=== PATIENT | female | born 1970 | race Caucasian/White ===

== ENCOUNTER 2019-02-18 00:56 | Observation (INO) ==
[2019-02-18] MEDS ORDERED: Isovue-370 500 ML BOTTLE IVP ONE ×2 (01:06→01:07)
[2019-02-18 01:13] LABS: Hemoglobin 6.7 g/dL (11.5-15.4); Mean Corpuscular HGB Conc 29.1 g/dL (31.6-35.5); Mean Corpuscular Hemoglobin 22.3 pg (28.0-33.3); Mean Corpuscular Volume 76.4 fL (83.0-100.0); Mean Platelet Volume 9.8 fL (9.4-12.4); Platelet Count 616 K/mcL (140-400); Red Blood Count 3.01 M/mcL (3.82-4.97); Red Cell Distribution Width 18.1 % (11.5-14.5); White Blood Count 13.3 K/mcL (4.3-11.1)
[2019-02-18 02:08] LABS: INR 1.1; Prothrombin Time 12.1 Seconds (9.4-12.1)
[2019-02-18 02:11] LABS: Activated Partial Thrombo Time 26.5 Seconds (26.0-36.0)
[2019-02-18 02:42] LABS: BUN/Creatinine Ratio 19 (6-26); Blood Urea Nitrogen 12 mg/dL (6-20); Calcium 8.8 mg/dL (8.6-10.3); Carbon Dioxide 23 mEq/L (23-29); Chloride 104 mEq/L (98-107); Glucose 127 mg/dL (70-105); Osmolality,Calculated 287 (280-300); Potassium 3.2 mEq/L (3.5-5.1); Sodium 138 mEq/L (136-145); eGFR For African Americans > 60 (> 60); eGFR For Non-African Americans > 60 (> 60)
[2019-02-18 02:46] LABS: Troponin I < 0.03 ng/mL (< 0.04)
--- NOTE | 2019-02-18 02:51 | Emergency Department Note ---
Disposition Clinical Impression: Acute on chronic anemia, TIA (transient ischemic attack) Disposition: Admitted As Inpatient Condition: Good Time of Disposition: 02:48 Neuro HPI - General Chief Complaint: ED Neuro Symptoms/Deficit Stated Complaint: "Anemic"/Neuro Sx Time Seen by Provider: 02/18/19 01:05 Source: patient Limitations: no limitations Nursing Notes Reviewed: Yes Vital Signs Reviewed: Yes - History of Present Illness HPI Narrative: 48-year-old female patient with a significant history of anemia requiring transfusion and iron infusions. Presents with left eyelid heaviness and weakness and tingling in her left side of her face and generalized weakness. She states that when her blood count is low she feels this way. She was at work and was becoming more weak and was advised to come to the emergency room. She was planning to call the cancer center tomorrow for an appointment to be evaluat ed and possibly transfused. She states her hemoglobin has been around 5 g in the past. Patient denies any facial droop, dysphagia, dysarthria, or slurring her words. She states she just feels kind of weak now with nausea. Onset of Symptoms Date: 02/17/19 Onset of Symptoms Time: 22:15 Symptom Onset Unknown: Yes Timing confirmed by: other (Patient and coworker) Location: left face, other (A she was not slurring her words, did not have any numbness or tingling in her arms or extremities. No dysarthria denies dysphagia they said she did look in the [place] her left eyelid looked a little droop and she was having trouble holding it open but otherwise she felt weak basically all over and felt that her blood count was low) Severity: mild, now resolved Quality: weakness Symptoms Improving: Yes Improves with: time Context: gradual onset On Anticoagulants: No Associated symptoms: Denies: confusion, chest pain, loss of appetite - Related Data Home Medications: Home Medications Medication Instructions Recorded Confirmed Ascorbic Acid [Vitamin C] 1,000 mg PO DAILY 02/18/19 02/18/19 Cyanocobalamin (Vitamin B-12) 1,000 mcg PO DAILY 02/18/19 02/18/19 [Vitamin B12] Ferrous Sulfate [Iron] 325 mg PO DAILY 02/18/19 02/18/19 Allergies/Adverse Reactions: Allergies Allergy/AdvReac Type Severity Reaction Status Date / Time No Known Allergies Allergy Verified 02/18/19 01:02 All systems ED: reviewed and negative except as stated. Constitutional: Reports: weakness. Denies: fever, chills, weight change Eyes: Denies: eye pain, eye discharge, vision change ENT ED: Denies: ear pain, throat pain, dental pain, hearing loss, epistaxis, congestion, dysphagia Cardiovascular: Denies: chest pain, palpitations, dyspnea on exertion, edema, syncope Respiratory: Denies: cough, dyspnea, wheezes, hemoptysis, stridor Gastrointestinal: Reports: nausea. Denies: abdominal pain, vomiting, diarrhea, constipation, hematemesis, melena, hematochezia Genitourinary: Denies: dysuria, frequency, hematuria, discharge Musculoskeletal: Denies: back pain, neck pain, arthralgia, myalgia Integumentary: Denies: rash, abrasion, lesions Neurological: Reports: weakness, other (Left eyelid weakness/heaviness. Left facial tingling). Denies: headache, numbness, paresthesias, confusion, abnormal gait, vertigo Psychiatric: Denies: anxiety, depression, suicidal thoughts, homicidal thoughts, auditory hallucinations, visual hallucinations Endocrine: Denies: fatigue Past Medical History - Past Medical History Attestation: Yes The following information was validated with the patient. Source: patient, old records reviewed, nursing notes reviewed Medical history: Reports: hypertension, other Surgical history: Reports: splenectomy Psychiatric history: Reports: no psych history - Social History Smoking Status: Current every day smoker Smokeless Tobacco Status: No Alcohol use: Reports: occasionally Drug use: Reports: none Physical Exam - General Limitations: no limitations General appearance: alert, in no apparent distress - Head Head exam: atraumatic, normocephalic, normal inspection - Eye Eye exam: Present: normal appearance, PERRL, EOMI. Absent: conjunctival injection, miosis, mydriasis - ENT ENT exam: normal exam, normal oropharynx, mucous membranes moist - Neck Neck exam: Present: normal inspection, full ROM, trachea midline - Chest Chest inspection: Present: normal inspection, symmetric chest wall rise Course Course Narrative: Patient was placed in examination room. H&P obtained. It was reported patient had a left sided facial droop and arm weakness but this was not true. She told me as well as the nursing staff that she had left eyelid heaviness and left facial tingling. She does have a significant history of being anemic. Her hemoglobin was 6.7. She was typed and crossmatched for 2 units. Patient was transfused. Patient was a stroke alert. Her symptoms had resolved so suspected transient ischemic attack or beats from her anemia as she was at work p hysically active and that could be demand ischemia causing some of the symptoms as well. The CT of her head, CTA of her head and neck were essentially unremarkable for acute pathology. Dr. Jon from [facility] neurological stroke team did evaluate the patient remotely and felt TPA was not necessary and advised to continue workup for TIA. I spoke with Dr. Morse who will admit the patient and I advised him about physical finding, laboratory data, radiological studies and results and neuro stroke team's recommendations. - Consultations Consultation #1: Dr Jon Neuro-Stroke team [facility] Time: 02:15 Consultation #2: Dr. Morse will admit. I did explain to him that the patient told me that only her left eye was little droopy which she noticed in the mirror she cannot felt weak and felt that she was low on blood Her hemoglobin was 6.7. She was transfused. I did obtain a CT of her head, CTA head and neck with her DID not show any acute pathology. Patient was evaluated by neuro stroke team from [facility]. They did not recommend TPA advised that he get further evaluate her for stroke with a CTA which had been performed advised to treat her anemia and have neurology see her Time: 03:51 Vital Signs Temperature 98.0 F 02/18/19 01:03 Pulse Rate 109 02/18/19 01:03 Respiratory Rate 20 02/18/19 01:03 Blood Pressure 181/95 02/18/19 01:03 O2 Sat by Pulse Oximetry 99 02/18/19 01:03 Temperature 98.9 F 02/18/19 07:11 Pulse Rate 78 02/18/19 07:11 Respiratory Rate 16 02/18/19 07:11 Blood Pressure 136/79 02/18/19 07:11 O2 Sat by Pulse Oximetry 99 02/18/19 07:11 Oxygen Delivery Oxygen Delivery Room Air Neuro Symptoms/Deficit - MDM Narrative Medical decision making narrative: Patient is not a TPA candidate as her symptoms were minimal and completely resolved and secondary to her significant anemia would also be contraindicated But, her symptoms versus a resolved upon my examination. She no longer had any facial/eye droop or facial tingling on the left Patient had a CT head, CTA head and neck which were essentially unremarkable showed no acute pathology. - Medical Records Medical records reviewed: Yes I reviewed the patient's medical records. - Lab Data Lab results reviewed: Yes I reviewed the patient's lab results. Result diagrams: 02/18/19 01:04 02/18/19 02:20 Lab Results 02/18/19 02/18/19 02/18/19 Range/Units 01:04 01:39 01:39 WBC 13.3 H (4.3-11.1) K/mcL RBC 3.01 L (3.82-4.97) M/mcL Hgb 6.7 L (11.5-15.4) g/dL Hct 23.0 L (35.3-44.9) % MCV 76.4 L (83.0-100.0) fL MCH 22.3 L (28.0-33.3) pg MCHC 29.1 L (31.6-35.5) g/dL RDW 18.1 H (11.5-14.5) % Plt Count 616 H (140-400) K/mcL MPV 9.8 (9.4-12.4) fL PT 12.1 (9.4-12.1) Seconds INR 1.1 APTT 26.5 (26.0-36.0) Seconds Sodium (136-145) mEq/L Potassium (3.5-5.1) mEq/L Chloride (98-107) mEq/L Carbon Dioxide (23-29) mEq/L BUN (6-20) mg/dL Creatinine (0.60-1.20) mg/dL Est GFR ( Amer) (> 60) Est GFR (Non-Af Amer) (> 60) BUN/Creatinine Ratio (6-26) Glucose (70-105) mg/dL Calculated Osmolality (280-300) Calcium (8.6-10.3) mg/dL Troponin I (< 0.04) ng/mL Specimen Rejected Miscellaneous Blood Type Antibody Screen Crossmatch 02/18/19 02/18/19 Range/Units 01:57 02:20 WBC (4.3-11.1) K/mcL RBC (3.82-4.97) M/mcL Hgb (11.5-15.4) g/dL Hct (35.3-44.9) % MCV (83.0-100.0) fL MCH (28.0-33.3) pg MCHC (31.6-35.5) g/dL RDW (11.5-14.5) % Plt Count (140-400) K/mcL MPV (9.4-12.4) fL PT (9.4-12.1) Seconds INR APTT (26.0-36.0) Seconds Sodium 138 (136-145) mEq/L Potassium 3.2 L (3.5-5.1) mEq/L Chloride 104 (98-107) mEq/L Carbon Dioxide 23 (23-29) mEq/L BUN 12 (6-20) mg/dL Creatinine 0.62 (0.60-1.20) mg/dL Est GFR ( Amer) > 60 (> 60) Est GFR (Non-Af Amer) > 60 (> 60) BUN/Creatinine Ratio 19 (6-26) Glucose 127 H (70-105) mg/dL Calculated Osmolality 287 (280-300) Calcium 8.8 (8.6-10.3) mg/dL Troponin I < 0.03 (< 0.04) ng/mL Specimen Rejected Blood Type A POSITIVE Antibody Screen NEGATIVE Crossmatch See Detail - Radiology Data Radiology results reviewed: Yes I reviewed the patient's radiology results. Head CT 02/18/19 01:06 IMPRESSION: No evidence acute infarct. Chronic low attenuation in the left insula. Bilateral maxillary sinus disease with polypoid mucosal thickening. Critical results were called by Dr. Suresh Finney to Dr. Kwan on 02/18/2019 at 01:22 AM. D/ / Suresh Finney / Suresh Finney Interpreting Provider: Suresh Finney Head CTA 02/18/19 01:06 IMPRESSION: Unremarkable CTA of the head and neck. D/ / Jeremias Sessions / Jeremias Child Interpreting Provider: Jeremias Child Neck CTA 02/18/19 01:07 IMPRESSION: Unremarkable CTA of the head and neck. D/ / Jeremias Sessions / Jeremias Sessions Interpreting Provider: Jeremias Sessions - EKG Data EKG attestation: Yes I reviewed and interpreted this EKG. EKG results narrative: EKG shows a sinus tachycardia at 114 bpm normal intervals and normal axis no acute ST elevations or depression just S infarction or ischemia is reviewed and interpreted by me. NIH Stroke Scale - Level of Consciousness LOC: Alert - LOC Questions LOC Questions: Answers both correctly - LOC Commands LOC Commands: Performs both correctly - Best Gaze Best Gaze: Normal - Visual Visual: No visual loss - Facial Palsy Facial Palsy: Normal - Motor Arms Motor Arm-Left: No drift for 10 seconds Motor Arm-Right: No drift for 10 seconds - Motor Legs Motor Leg-Left: No drift for 5 seconds Motor Leg-Right: No drift for 5 seconds - Limb Ataxia Limb Ataxia: Absent of affected limb too weak to perform exam - Sensory Sensory: Normal - Best Language Best Language: No aphasia - Dysarthria Dysarthria: Normal - Extinction and Inattention Extinction and Inattention: Normal - NIHSS Total Score NIHSS Total Score: 0 - Pupil Exam Bilateral Pupil Reaction: Reactive TPA Checklist - LKW: 3-4.5 hrs Add. Warnings/Precautions Patient/family understanding: The patient/family members have been counseled and understood the risk, benefit, and alternatives of treatment. Critical Care Time Critical Care Time: Yes Total Critical Care Time: 30 Attestation: The high probability of a clinically significant, sudden or life threatening deterioration of the patient's condition required my full and direct attention, intervention and personal management.
[2019-02-18] MEDS ORDERED: Ondansetron ODT 4 MG TAB.RAPDIS SL ONE (03:53)
[2019-02-18] MEDS ORDERED: 0.9 % Sodium Chloride 250 ML ONE (06:11)
[2019-02-18] MEDS ORDERED: Acetaminophen 325 MG TABLET PO PRN (07:39)
[2019-02-18] MEDS ORDERED: Naloxone 0.4 MG/ML INJ IVP PRN (07:39)
[2019-02-18] MEDS ORDERED: traMADol 50 MG TABLET PO PRN (07:39)
[2019-02-18] MEDS ORDERED: *HR* Promethazine 25 MG/ML VIAL IVP PRN (07:39)
[2019-02-18] MEDS ORDERED: Ondansetron 4 MG/2 ML VIAL IVP PRN (07:39)
[2019-02-18] MEDS ORDERED: Mag Hydrox/Al Hydrox/Simeth 30 ML UDC PO PRN (07:39)
--- NOTE | 2019-02-18 07:45 | Internal Med History&Physical ---
Date of Encounter: 02/18/19 Time of Encounter: 07:41 Internal Medicine - H&P: HPI Admitted From: Home Plans for Post Hospital Care: Home History of present illness: 48-year-old female patient with a significant history of anemia requiring transfusion and iron infusions. Presents with left eyelid heaviness and weakness and tingling in her left side of her face and generalized weakness. She states that when her blood count is low she feels this way. She was at work and was becoming more weak and was advised to come to the emergency room. She was planning to call the cancer center tomorrow for an appointment to be evaluated and possibly transfused. She states her hemoglobin has been around 5 g in the past. Patient denies any facial droop, dysphagia, dysarthria, or slurring her words. She states she just feels kind of weak now with nausea. CT of head was negative for acute abnormalities. CTA of head has no acute vascular stenosis. [facility] stroke and was consulted and patient was not a candidate for TPA. Patient was admitted for further evaluation and management. She will hemoglobin was 6.7 upon admission, 2 unit PRBC was ordered. Patient CODE STATUS will be full code. Past Med Surg Social Fam HX - Past Medical History Medical history: hypertension, other Additional medical history: anemia Psychiatric history: no psych history - Past Surgical History Surgical History: splenectomy Additional surgical history: partial hysterectomy, right acl, right ankle surgery - Social History Smoking Status: Current every day smoker Smokeless Tobacco Status: No Alcohol use: occasionally Drug use: none - Family History Mother Hx Family Cancer: Yes (lung, cervical) Father Living Status: Hx Family Cardiac Disorders: Yes (triple bypass, double bypass) Internal Medicine - H&P: Meds Ascorbic Acid [Vitamin C] 1,000 mg PO DAILY 02/18/19 [History] Cyanocobalamin (Vitamin B-12) [Vitamin B12] 1,000 mcg PO DAILY 02/18/19 [History] Ferrous Sulfate [Iron] 325 mg PO DAILY 02/18/19 [History] Allergy/AdvReac Type Severity Reaction Status Date / Time No Known Allergies Allergy Verified 02/18/19 01:02 All Systems PM: A 10-system review of systems was performed and is negative for pertinent findings except as documented above in the HPI. Review of systems: REVIEW OF SYSTEMS: CONSTITUTIONAL: No weight loss, fever, chills, weakness or fatigue. HEENT: Eyes: No visual loss, blurred vision, double vision or yellow sclerae. Ears, Nose, Throat: No hearing loss, sneezing, congestion, runny nose or sore throat. SKIN: No rash or itching. CARDIOVASCULAR: No chest pain, chest pressure or chest discomfort. No palpitations or edema. RESPIRATORY: No shortness of breath, cough or sputum. GASTROINTESTINAL: No anorexia, nausea, vomiting or diarrhea. No abdominal pain or blood. GENITOURINARY: No dysuria, urgency, or frequency. NEUROLOGICAL: see HPI. MUSCULOSKELETAL: No muscle, back pain, joint pain or stiffness. HEMATOLOGIC: No anemia, bleeding or bruising. LYMPHATICS: No enlarged nodes. No history of splenectomy. PSYCHIATRIC: No history of depression or anxiety. ENDOCRINOLOGIC: No reports of sweating, cold or heat intolerance. No polyuria or polydipsia. - Constitutional Vitals: Temp Pulse Resp BP Pulse Ox 98.9 F 78 16 136/79 99 02/18/19 07:11 02/18/19 07:11 02/18/19 07:11 02/18/19 07:11 02/18/19 07:11 General appearance: Present: A&O X 3 Exam: PHYSICAL EXAMINATION: GENERAL APPEARANCE: The patient is alert, oriented and in no acute distress. HEENT: Head is normocephalic. The sinuses are nontender. Pupils are equal and reactive. The nares are patent. Oropharynx clear without lesions. NECK: Supple without lymphadenopathy. HEART: Regular rate and rhythm. LUNGS: No crackles or wheezes are heard. ABDOMEN: Soft, nontender, nondistended with good bowel sounds heard. Inguinal area is normal. EXTREMITIES: Without cyanosis, clubbing or edema. NEUROLOGICAL: Mild diplopia on the left eye, pupil size is equal and reactive to light, no facial drooping or skin flushing on the left side. SKIN: Warm and dry without any rash. Internal Med - H&P Results - Labs CBC & Chem 7: 02/18/19 01:04 02/18/19 02:20 Labs: Short CBC 02/18/19 Range/Units 01:04 WBC 13.3 H (4.3-11.1) K/mcL Hgb 6.7 L (11.5-15.4) g/dL Hct 23.0 L (35.3-44.9) % Plt Count 616 H (140-400) K/mcL BMP 02/18/19 02:20 Sodium 138 Potassium 3.2 L Chloride 104 Carbon Dioxide 23 BUN 12 Creatinine 0.62 Glucose 127 H Calcium 8.8 Cardiac Enzymes 02/18/19 Range/Units 02:20 Troponin I < 0.03 (< 0.04) ng/mL - Impressions ITS Impressions Head CT 02/18/19 01:06 IMPRESSION: No evidence acute infarct. Chronic low attenuation in the left insula. Bilateral maxillary sinus disease with polypoid mucosal thickening. Critical results were called by Dr. Suresh Finney to Dr. Kwan on 02/18/2019 at 01:22 AM. D/ / 02/18/2019 07:06:23 Suresh Finney / nidia Interpreting Provider: Suresh Finney Head CTA 02/18/19 01:06 IMPRESSION: Unremarkable CTA of the head and neck. D/ / Jeremias Sessions / Jeremias Sessions Interpreting Provider: Jeremias Sessions Neck CTA 02/18/19 01:07 IMPRESSION: Unremarkable CTA of the head and neck. D/ / Jeremias Sessions / Jeremias Sessions Interpreting Provider: Jeremias Sessions Chest X-Ray 02/18/19 03:49 IMPRESSION: Findings of volume overload. Stable lateral left mid lung pulmonary nodule requiring no imaging follow-up. D/ / Suresh Finney / Suresh Finney Interpreting Provider: Suresh Finney - Assessment and Plan (1) Acute on chronic anemia Current Visit: Yes Status: Acute Assessment and plan: 8-year-old female with snoring history of iron deficiency anemia, unresponsive to oral iron supplementation, frequently requiring IV iron infusion, presented with TIA like symptoms with left facial numbness and left diplopia. CT and CTA of her head w negative. Hemoglobin upon arrival was 6.7, 2 unit PRBC was ordered. She reported partially resolution of symptoms after blood transfusion. Patient does not have any risk factors for CVA or cardiovascular disease, negative CT and a CTA of her head, in the setting of her acute anemia, her presenting symptoms could be attributed to severe anemia. Her symptoms improved after blood transfusion. We will continue to transfuse 2 unit PRBC, continue monitoring neurological symptoms. No indications for further imaging at this point. (2) Iron deficiency anemia Current Visit: No Status: Chronic Assessment and plan: She will follow up with hematology as outpatient for periodic IV iron infusion. She was not responding to oral iron supplementation in the past. Qualifiers: Iron deficiency anemia type: unspecified iron deficiency Qualified Code(s): D50.9 - Iron deficiency anemia, unspecified (3) Monocular diplopia of left eye Current Visit: Yes Status: Acute Assessment and plan: Symptoms improved, this could be caused by severe anemia. Neurological workup was negative so far. (4) DVT prophylaxis Current Visit: Yes Status: Acute Assessment and plan: SCDs. - Time Spent With Patient Total time spent is greater than 50% in coordination of care (as documented) at patient's floor/unit and/or counseling patient: Greater than 35 minutes
[2019-02-18] MEDS: Ascorbic Acid 500 MG TABLET PO SCH (08:58)
[2019-02-18] MEDS: Cyanocobalamin (B-12) 1,000 MCG TABLET PO SCH (08:58)
[2019-02-18 15:44] LABS: Hematocrit 29.1 % (35.3-44.9)
[2019-02-19 07:16] LABS: Basophils # 0.1 K/mcL (0.0-0.2); Basophils % 0.8 %; Eosinophils # 0.7 K/mcL (0.0-0.6); Eosinophils % 4.4 %; Hematocrit 29.4 % (35.3-44.9); Immature Granulocytes % 0.8 % (0-4); Lymphocytes # 1.9 K/mcL (0.6-4.6); Lymphocytes % 11.4 %; Mean Corpuscular HGB Conc 30.6 g/dL (31.6-35.5); Mean Corpuscular Hemoglobin 24.1 pg (28.0-33.3); Mean Corpuscular Volume 78.8 fL (83.0-100.0); Mean Platelet Volume 10.3 fL (9.4-12.4); Monocytes # 1.4 K/mcL (0.0-1.3); Monocytes % 8.2 %; Neutrophils # 12.5 K/mcL (1.6-8.9); Nucleated Red Blood Cells 1.3 /100 WBC (0); Platelet Count 589 K/mcL (140-400); Red Blood Count 3.73 M/mcL (3.82-4.97); Red Cell Distribution Width 17.1 % (11.5-14.5); Segmented Neutrophils % 74.4 %; White Blood Count 16.7 K/mcL (4.3-11.1)
[2019-02-19 07:23] LABS: BUN/Creatinine Ratio 17 (6-26); Blood Urea Nitrogen 10 mg/dL (6-20); Calcium 8.7 mg/dL (8.6-10.3); Carbon Dioxide 25 mEq/L (23-29); Chloride 106 mEq/L (98-107); Glucose 100 mg/dL (70-105); Osmolality,Calculated 279 (280-300); Potassium 3.8 mEq/L (3.5-5.1); Sodium 135 mEq/L (136-145); eGFR For African Americans > 60 (> 60); eGFR For Non-African Americans > 60 (> 60)
[2019-02-19] MEDS: Cyanocobalamin (B-12) 1,000 MCG TABLET PO SCH (08:14)
[2019-02-19] MEDS: Ascorbic Acid 500 MG TABLET PO SCH (08:15)
--- NOTE | 2019-02-19 08:46 | Discharge Summary ---
- NOTES TO OUTPATIENT PROVIDER Notes to Outpatient Provider: f/u with PCP within a week. f/u with Dr. Pal hematology within 2-3 weeks. Date of Encounter: 02/19/19 Time of Encounter: 08:43 - Discharge Diagnosis (1) Acute on chronic anemia Priority: Primary Status: Acute (2) Iron deficiency anemia Priority: Primary Status: Chronic Qualifiers: Iron deficiency anemia type: unspecified iron deficiency Qualified Code(s): D50.9 - Iron deficiency anemia, unspecified (3) Monocular diplopia of left eye Priority: Primary Status: Acute (4) DVT prophylaxis Priority: Primary Status: Acute Hospital course: Ms. Motta is a 48 year old female with a significant history of anemia requiring transfusion and iron infusions. Presents with left eyelid heaviness and weakness and tingling in her left side of her face and generalized weakness. She states that when her blood count is low she feels this way. She was at work and was becoming more weak and was advised to come to the emergency room. She was planning to call the cancer center tomorrow for an appointment to be evaluated and possibly transfused. She states her hemoglobin has been around 5 g in the past. Patient denies any facial droop, dysphagia, dysarthria, or slurring her words. She states she just feels kind of weak now with nausea. CT of head was negative for acute abnormalities. CTA of head has no acute vascular stenosis. [facility] stroke and was consulted and patient was not a candidate for TPA. Patient was admitted for further evaluation and management. She will hemoglobin was 6.7 upon admission, 2 unit PRBC was ordered. Hemoglobin level reached to 9.0 after the blood transfusion. Patient reported resolution of left-sided facial numbness and ptosis. Patient is discharged home today, and she will follow-up with PCP and hematology as scheduled. Discharge discussed with: patient Time spent discussing smoking cessation with patient: more than 10 minutes - Time Spent with Patient Total time spent providing and/or coordinating discharge services: Time spent: Greater than 30 minutes - Discharge Medications Prescriptions: Continued Ferrous Sulfate [Iron] 325 mg PO DAILY Cyanocobalamin (Vitamin B-12) [Vitamin B12] 1,000 mcg PO DAILY Ascorbic Acid [Vitamin C] 1,000 mg PO DAILY Home Medications: Ascorbic Acid [Vitamin C] 1,000 mg PO DAILY 02/18/19 [History] Cyanocobalamin (Vitamin B-12) [Vitamin B12] 1,000 mcg PO DAILY 02/18/19 [History] Ferrous Sulfate [Iron] 325 mg PO DAILY 02/18/19 [History] Allergies/Adverse Reactions: Allergy/AdvReac Type Severity Reaction Status Date / Time No Known Allergies Allergy Verified 02/18/19 01:02 Date of admission: 02/18/19 04:08 Primary care physician: PCP NONE Anticipated date of discharge: 02/19/19 - Constitutional Vitals: Temp Pulse Resp BP Pulse Ox 98.5 F 82 21 154/84 99 02/19/19 07:51 02/19/19 07:51 02/19/19 07:51 02/19/19 07:51 02/19/19 07:51 General appearance: Present: A&O X 3 Exam: PHYSICAL EXAMINATION: GENERAL APPEARANCE: The patient is alert, oriented and in no acute distress. HEENT: Head is normocephalic. The sinuses are nontender. Pupils are equal and reactive. The nares are patent. Oropharynx clear without lesions. NECK: Supple without lymphadenopathy. HEART: Regular rate and rhythm. LUNGS: No crackles or wheezes are heard. ABDOMEN: Soft, nontender, nondistended with good bowel sounds heard. Inguinal area is normal. EXTREMITIES: Without cyanosis, clubbing or edema. NEUROLOGICAL: Mild diplopia on the left eye, pupil size is equal and reactive to light, no facial drooping or skin flushing on the left side. SKIN: Warm and dry without any rash. - Patient Status Disposition: Home, Self-Care Condition: Good Functional capacity at discharge: independent ambulation Overall status at discharge: patient is back to baseline - Discharge Instructions Follow Up With: Felipe Matthews MD [Non-Partnered Physician] - (Please contact your primary care office to schedule an appointment after discharge. Thank you. ) - Diet and Activity Activity: increase activity as tolerated Diet: advance to your usual diet
[2019-02-19 11:18] VITALS: BP 160/97
--- NOTE | 2019-02-22 15:49 | Electrocardiograph Report ---
[address] [place], [place] [address] Test Date: 2019-02-18 Pat Name: Petra Motta Department: [id number] Room: 3B46 Gender: F [employer]: : 1970 Requested By: Fermín Platt Order Number: [id number] Reading MD: Raheem Dotson Measurements Intervals [place] Rate: 114 P: 56 CO: 162 QRS: 33 QRSD: 78 T: 40 QT: 318 QTc: 438 Interpretive Statements Sinus tachycardia Atrial premature complex Abnormal R-wave progression, early transition Electronically Signed On 02-22-2019 15:47:29 EDT by Raheem Dotson
== END 2019-02-19 11:31 | disposition home or self-care (01) ==
LOC: 3BNU 00:56 → EMEROOARM 00:56 → 3BNU 04:35
PROVIDERS: ADMIT Family Medicine; ATTEND Family Medicine

== ENCOUNTER 2019-11-03 07:55 | Inpatient (IN) ==
[~2019-11-03 07:55] MED LIST: Lidocaine -MPF 2% 2 ML VIAL ONE
[2019-11-03] MEDS ORDERED: 0.9 % Sodium Chloride 1,000 ML IVC SCH (08:45)
[2019-11-03] MEDS ORDERED: *HR* Propofol 200 MG/20 ML VIAL IVP ONE ×3 (09:16→09:34)
[2019-11-03] MEDS ORDERED: *HR* EPINEPHrine 1 MG/10 ML SYRINGE ONE (09:24)
[2019-11-03] MEDS ORDERED: *HR* Metoprolol 5 MG/5 ML VIAL IVP ONE (09:30)
[2019-11-03] MEDS ORDERED: Naloxone 0.4 MG/ML INJ IVP PRN (11:41)
[2019-11-03] MEDS ORDERED: Isovue-370 500 ML BOTTLE IVP ONE (11:55)
[2019-11-03 13:12] LABS: Hematocrit 37.8 % (35.3-44.9); Hemoglobin 12.7 g/dL (11.5-15.4); Mean Corpuscular HGB Conc 33.6 g/dL (31.6-35.5); Mean Corpuscular Volume 89.2 fL (83.0-100.0); Mean Platelet Volume 9.8 fL (9.4-12.4); Platelet Count 375 K/mcL (140-400); Red Blood Count 4.24 M/mcL (3.82-4.97); Red Cell Distribution Width 16.2 % (11.5-14.5); White Blood Count 16.3 K/mcL (4.3-11.1)
[2019-11-03 13:40] LABS: BUN/Creatinine Ratio 13 (6-26); Blood Urea Nitrogen 7 mg/dL (6-20); Calcium 8.5 mg/dL (8.6-10.3); Carbon Dioxide 27 mEq/L (23-29); Chloride 105 mEq/L (98-107); Glucose 123 mg/dL (70-105); Osmolality,Calculated 287 (280-300); Potassium 3.3 mEq/L (3.5-5.1); Sodium 139 mEq/L (136-145); eGFR For African Americans > 60 (> 60); eGFR For Non-African Americans > 60 (> 60)
[2019-11-03] MEDS ORDERED: Potassium Chloride 40 MEQ, Lidocaine 1% 2 ML in 0.9 % Sodium Chloride 500 ML IVPB ONE (14:09)
[2019-11-03] MEDS ORDERED: *HR* Labetalol 20 MG/4 ML SYRINGE IVP PRN (14:26)
[2019-11-03] MEDS ORDERED: Isovue-370 500 ML BOTTLE PO ONE (14:47)
[2019-11-03] MEDS: atenoloL 50 MG TABLET PO SCH (15:30)
[2019-11-03] MEDS: Pantoprazole 40 MG VIAL IVP SCH (15:30)
[2019-11-03] MEDS: hydroCHLOROthiazide 25 MG TABLET PO SCH (15:30)
[2019-11-03] MEDS ORDERED: Acetaminophen 325 MG TABLET PO PRN (20:20)
[2019-11-04 05:36] LABS: Basophils # 0.1 K/mcL (0.0-0.2); Basophils % 0.4 %; Eosinophils # 0.2 K/mcL (0.0-0.6); Eosinophils % 1.6 %; Hematocrit 35.1 % (35.3-44.9); Hemoglobin 11.8 g/dL (11.5-15.4); Immature Granulocytes % 0.3 % (0-4); Lymphocytes # 2.2 K/mcL (0.6-4.6); Lymphocytes % 15.7 %; Mean Corpuscular HGB Conc 33.6 g/dL (31.6-35.5); Mean Corpuscular Volume 92.1 fL (83.0-100.0); Mean Platelet Volume 10.7 fL (9.4-12.4); Monocytes # 1.1 K/mcL (0.0-1.3); Monocytes % 8.2 %; Neutrophils # 10.2 K/mcL (1.6-8.9); Platelet Count 359 K/mcL (140-400); Red Blood Count 3.81 M/mcL (3.82-4.97); Segmented Neutrophils % 73.8 %; White Blood Count 13.7 K/mcL (4.3-11.1)
[2019-11-04 05:57] LABS: BUN/Creatinine Ratio 16 (6-26); Blood Urea Nitrogen 9 mg/dL (6-20); Calcium 8.5 mg/dL (8.6-10.3); Carbon Dioxide 25 mEq/L (23-29); Chloride 104 mEq/L (98-107); Glucose 125 mg/dL (70-105); Magnesium 2.1 mg/dL (1.6-2.6); Osmolality,Calculated 280 (280-300); Potassium 3.7 mEq/L (3.5-5.1); Sodium 135 mEq/L (136-145); eGFR For African Americans > 60 (> 60); eGFR For Non-African Americans > 60 (> 60)
[2019-11-04] MEDS: Pantoprazole 40 MG VIAL IVP SCH (07:18)
[2019-11-04] MEDS: atenoloL 50 MG TABLET PO SCH (07:18)
[2019-11-04] MEDS: hydroCHLOROthiazide 25 MG TABLET PO SCH (07:18)
[2019-11-04] MEDS ORDERED: *HR* Labetalol 20 MG/4 ML SYRINGE IVP PRN ×3 (07:57→15:49)
[2019-11-04] MEDS ORDERED: Piperacillin/Tazobactam 3.375 GM in 0.9 % Sodium Chloride Mini Bag 100 ML IVPB SCH (12:00)
[2019-11-04] MEDS ORDERED: Acetaminophen IV 1,000 MG/100 ML INFUS..BTL ONE (12:38)
[2019-11-04] MEDS ORDERED: Famotidine 20 MG/2 ML VIAL ONE (12:38)
[2019-11-04] MEDS ORDERED: *HR* Propofol 200 MG/20 ML VIAL IVP ONE (12:41)
[2019-11-04] MEDS ORDERED: *HR* FentaNYL (PF) 100 MCG/2 ML VIAL ONE (12:41)
[2019-11-04] MEDS ORDERED: Lidocaine -MPF 2% 2 ML VIAL ONE (12:41)
[2019-11-04] MEDS ORDERED: *HR* Rocuronium Bromide 50 MG/5 ML VIAL ONE (12:41)
[2019-11-04] MEDS ORDERED: *HR* Succinylcholine 200 MG/10 ML VIAL IVP ONE (12:41)
[2019-11-04] MEDS ORDERED: *HR* Midazolam HCl 2 MG/2 ML VIAL ONE (12:41)
[2019-11-04] MEDS ORDERED: Ondansetron 4 MG/2 ML VIAL ONE (13:42)
[2019-11-04] MEDS ORDERED: Dexamethasone 4 MG/ML VIAL ONE (13:42)
[2019-11-04] MEDS ORDERED: *HR* Promethazine 25 MG/ML VIAL IVP PRN (13:47)
[2019-11-04] MEDS ORDERED: *HR* HYDROmorphone PF 0.5 MG/0.5 ML SYRINGE IVP PRN (13:47)
[2019-11-04] MEDS ORDERED: Ondansetron 4 MG/2 ML VIAL IVP PRN (13:47)
[2019-11-04] MEDS ORDERED: Neostigmine Methylsulfate 3 MG/3 ML SYRINGE ONE (14:14)
[2019-11-04] MEDS ORDERED: Ketorolac 30 MG/ML VIAL ONE (14:16)
[2019-11-04] MEDS ORDERED: *HR* HYDROMORPHONE 2 MG/ML VIAL ONE (14:19)
[2019-11-04] MEDS ORDERED: Naloxone 0.4 MG/ML INJ IVP PRN (15:49)
[2019-11-04] MEDS: Acetaminophen IV 1,000 MG/100 ML INFUS..BTL IVPB SCH (19:41)
[2019-11-04] MEDS: Piperacillin/Tazobactam 3.375 GM in 0.9 % Sodium Chloride Mini Bag 100 ML IVPB SCH (21:00)
[2019-11-04] MEDS ORDERED: *HR* LORazepam 2 MG/ML VIAL IVP STA (22:13)
[2019-11-04] MEDS ORDERED: Chloraseptic Spray 177 ML BOTTLE MM PRN (23:37)
[2019-11-05] MEDS ORDERED: *HR* LORazepam 2 MG/ML VIAL IVP ONE (00:10)
[2019-11-05] MEDS: Acetaminophen IV 1,000 MG/100 ML INFUS..BTL IVPB SCH ×4 (01:19→18:15)
[2019-11-05 02:20] LABS: Basophils % 0.2 %; Hematocrit 36.3 % (35.3-44.9); Hemoglobin 11.7 g/dL (11.5-15.4); Immature Granulocytes % 0.6 % (0-4); Lymphocytes # 0.7 K/mcL (0.6-4.6); Lymphocytes % 4.2 %; Mean Corpuscular HGB Conc 32.2 g/dL (31.6-35.5); Mean Corpuscular Volume 89.9 fL (83.0-100.0); Mean Platelet Volume 10.1 fL (9.4-12.4); Monocytes # 0.7 K/mcL (0.0-1.3); Monocytes % 4.1 %; Neutrophils # 15.8 K/mcL (1.6-8.9); Platelet Count 354 K/mcL (140-400); Red Blood Count 4.04 M/mcL (3.82-4.97); Red Cell Distribution Width 16.3 % (11.5-14.5); Segmented Neutrophils % 90.9 %; White Blood Count 17.4 K/mcL (4.3-11.1)
[2019-11-05 02:38] LABS: BUN/Creatinine Ratio 18 (6-26); Blood Urea Nitrogen 11 mg/dL (6-20); Calcium 8.4 mg/dL (8.6-10.3); Carbon Dioxide 23 mEq/L (23-29); Chloride 101 mEq/L (98-107); Glucose 161 mg/dL (70-105); Osmolality,Calculated 279 (280-300); Potassium 3.7 mEq/L (3.5-5.1); Sodium 133 mEq/L (136-145); eGFR For African Americans > 60 (> 60); eGFR For Non-African Americans > 60 (> 60)
[2019-11-05] MEDS: Piperacillin/Tazobactam 3.375 GM in 0.9 % Sodium Chloride Mini Bag 100 ML IVPB SCH ×3 (05:29→20:44)
[2019-11-05] MEDS: Pantoprazole 40 MG VIAL IVP SCH (08:01)
[2019-11-05] MEDS: 0.9 % Sodium Chloride 1,000 ML IVC SCH (08:36)
[2019-11-06] MEDS: Acetaminophen IV 1,000 MG/100 ML INFUS..BTL IVPB SCH ×4 (01:52→19:49)
[2019-11-06] MEDS: *HR* Enoxaparin 40 MG/0.4 ML SYRINGE SQ SCH (04:20)
[2019-11-06] MEDS: Piperacillin/Tazobactam 3.375 GM in 0.9 % Sodium Chloride Mini Bag 100 ML IVPB SCH ×3 (04:20→20:52)
[2019-11-06 05:44] LABS: Basophils # 0.1 K/mcL (0.0-0.2); Basophils % 0.4 %; Eosinophils # 0.3 K/mcL (0.0-0.6); Eosinophils % 1.7 %; Hematocrit 34.4 % (35.3-44.9); Hemoglobin 11.2 g/dL (11.5-15.4); Immature Granulocytes % 0.5 % (0-4); Lymphocytes # 2.2 K/mcL (0.6-4.6); Lymphocytes % 14.2 %; Mean Corpuscular HGB Conc 32.6 g/dL (31.6-35.5); Mean Corpuscular Hemoglobin 29.3 pg (28.0-33.3); Mean Corpuscular Volume 90.1 fL (83.0-100.0); Mean Platelet Volume 10.2 fL (9.4-12.4); Monocytes # 1.3 K/mcL (0.0-1.3); Monocytes % 8.6 %; Neutrophils # 11.4 K/mcL (1.6-8.9); Platelet Count 341 K/mcL (140-400); Red Blood Count 3.82 M/mcL (3.82-4.97); Red Cell Distribution Width 16.1 % (11.5-14.5); Segmented Neutrophils % 74.6 %; White Blood Count 15.3 K/mcL (4.3-11.1)
[2019-11-06 06:02] LABS: BUN/Creatinine Ratio 18 (6-26); Blood Urea Nitrogen 10 mg/dL (6-20); Calcium 8.3 mg/dL (8.6-10.3); Carbon Dioxide 25 mEq/L (23-29); Chloride 104 mEq/L (98-107); Glucose 122 mg/dL (70-105); Osmolality,Calculated 284 (280-300); Potassium 3.5 mEq/L (3.5-5.1); Sodium 137 mEq/L (136-145); eGFR For African Americans > 60 (> 60); eGFR For Non-African Americans > 60 (> 60)
[2019-11-06] MEDS: Pantoprazole 40 MG VIAL IVP SCH (08:57)
[2019-11-06] MEDS: 0.9 % Sodium Chloride 1,000 ML IVC SCH (09:02)
[2019-11-06] MEDS: *HR* Labetalol 20 MG/4 ML SYRINGE IVP PRN (13:36)
[2019-11-06] MEDS ORDERED: *HR* Labetalol 20 MG/4 ML SYRINGE IVP ONE (17:36)
[2019-11-06] MEDS: *HR* LORazepam 2 MG/ML VIAL IVP PRN (19:49)
[2019-11-07] MEDS: Acetaminophen IV 1,000 MG/100 ML INFUS..BTL IVPB SCH ×4 (01:38→20:08)
[2019-11-07] MEDS: *HR* Labetalol 20 MG/4 ML SYRINGE IVP PRN ×2 (01:48→11:10)
[2019-11-07] MEDS: Piperacillin/Tazobactam 3.375 GM in 0.9 % Sodium Chloride Mini Bag 100 ML IVPB SCH ×3 (04:30→20:05)
[2019-11-07] MEDS: *HR* Enoxaparin 40 MG/0.4 ML SYRINGE SQ SCH (04:30)
[2019-11-07 05:08] LABS: Basophils # 0.1 K/mcL (0.0-0.2); Basophils % 0.5 %; Eosinophils # 0.5 K/mcL (0.0-0.6); Eosinophils % 3.8 %; Hematocrit 34.5 % (35.3-44.9); Immature Granulocytes % 0.3 % (0-4); Lymphocytes # 1.6 K/mcL (0.6-4.6); Lymphocytes % 11.2 %; Mean Corpuscular HGB Conc 31.9 g/dL (31.6-35.5); Mean Corpuscular Hemoglobin 28.9 pg (28.0-33.3); Mean Corpuscular Volume 90.6 fL (83.0-100.0); Mean Platelet Volume 10.5 fL (9.4-12.4); Monocytes # 1.2 K/mcL (0.0-1.3); Monocytes % 8.6 %; Neutrophils # 10.7 K/mcL (1.6-8.9); Platelet Count 369 K/mcL (140-400); Red Blood Count 3.81 M/mcL (3.82-4.97); Segmented Neutrophils % 75.6 %; White Blood Count 14.2 K/mcL (4.3-11.1)
[2019-11-07 05:32] LABS: BUN/Creatinine Ratio 16 (6-26); Blood Urea Nitrogen 8 mg/dL (6-20); Calcium 8.1 mg/dL (8.6-10.3); Carbon Dioxide 24 mEq/L (23-29); Chloride 104 mEq/L (98-107); Glucose 121 mg/dL (70-105); Magnesium 1.9 mg/dL (1.6-2.6); Osmolality,Calculated 282 (280-300); Potassium 3.6 mEq/L (3.5-5.1); Sodium 136 mEq/L (136-145); eGFR For African Americans > 60 (> 60); eGFR For Non-African Americans > 60 (> 60)
[2019-11-07] MEDS: Pantoprazole 40 MG VIAL IVP SCH (08:59)
[2019-11-07] MEDS: *HR* LORazepam 2 MG/ML VIAL IVP PRN (08:59)
[2019-11-07] MEDS: D5% in Lactated Ringers 1,000 ML IVC SCH (13:31)
[2019-11-08] MEDS: Acetaminophen IV 1,000 MG/100 ML INFUS..BTL IVPB SCH ×3 (00:07→13:53)
[2019-11-08] MEDS: D5% in Lactated Ringers 1,000 ML IVC SCH ×2 (03:06→17:07)
[2019-11-08] MEDS: Piperacillin/Tazobactam 3.375 GM in 0.9 % Sodium Chloride Mini Bag 100 ML IVPB SCH (05:37)
[2019-11-08] MEDS: *HR* Enoxaparin 40 MG/0.4 ML SYRINGE SQ SCH (05:37)
[2019-11-08 06:08] LABS: Basophils # 0.1 K/mcL (0.0-0.2); Basophils % 0.5 %; Eosinophils # 0.6 K/mcL (0.0-0.6); Eosinophils % 4.1 %; Hematocrit 35.6 % (35.3-44.9); Hemoglobin 11.8 g/dL (11.5-15.4); Immature Granulocytes % 0.4 % (0-4); Lymphocytes # 1.3 K/mcL (0.6-4.6); Lymphocytes % 8.7 %; Mean Corpuscular HGB Conc 33.1 g/dL (31.6-35.5); Mean Corpuscular Hemoglobin 29.9 pg (28.0-33.3); Mean Corpuscular Volume 90.1 fL (83.0-100.0); Mean Platelet Volume 10.7 fL (9.4-12.4); Monocytes # 1.2 K/mcL (0.0-1.3); Monocytes % 8.1 %; Neutrophils # 11.6 K/mcL (1.6-8.9); Platelet Count 388 K/mcL (140-400); Red Blood Count 3.95 M/mcL (3.82-4.97); Red Cell Distribution Width 15.8 % (11.5-14.5); Segmented Neutrophils % 78.2 %; White Blood Count 14.8 K/mcL (4.3-11.1)
[2019-11-08 06:26] LABS: BUN/Creatinine Ratio 10 (6-26); Blood Urea Nitrogen 5 mg/dL (6-20); Calcium 8.8 mg/dL (8.6-10.3); Carbon Dioxide 24 mEq/L (23-29); Chloride 104 mEq/L (98-107); Glucose 139 mg/dL (70-105); Osmolality,Calculated 280 (280-300); Potassium 3.6 mEq/L (3.5-5.1); Sodium 135 mEq/L (136-145); eGFR For African Americans > 60 (> 60); eGFR For Non-African Americans > 60 (> 60)
[2019-11-08] MEDS: Pantoprazole 40 MG VIAL IVP SCH (09:27)
[2019-11-08] MEDS ORDERED: hydrALAZINE 25 MG TABLET PO SCH (10:00)
[2019-11-08] MEDS: hydroCHLOROthiazide 25 MG TABLET PO SCH (12:33)
[2019-11-08] MEDS: atenoloL 50 MG TABLET PO SCH (12:35)
[2019-11-08] MEDS ORDERED: *HR* OxyCODONE/APAP 5/325 TABLET PO PRN (15:14)
[2019-11-08] MEDS: metroNIDAZOLE 500 MG TABLET PO SCH (19:57)
[2019-11-09 04:54] LABS: Basophils # 0.1 K/mcL (0.0-0.2); Basophils % 0.6 %; Eosinophils # 0.5 K/mcL (0.0-0.6); Eosinophils % 4.6 %; Hematocrit 36.7 % (35.3-44.9); Hemoglobin 11.9 g/dL (11.5-15.4); Lymphocytes # 1.6 K/mcL (0.6-4.6); Lymphocytes % 13.9 %; Mean Corpuscular HGB Conc 32.4 g/dL (31.6-35.5); Mean Corpuscular Volume 89.3 fL (83.0-100.0); Monocytes % 8.7 %; Neutrophils # 8.3 K/mcL (1.6-8.9); Platelet Count 401 K/mcL (140-400); Red Blood Count 4.11 M/mcL (3.82-4.97); Red Cell Distribution Width 15.6 % (11.5-14.5); Segmented Neutrophils % 71.2 %; White Blood Count 11.7 K/mcL (4.3-11.1)
[2019-11-09 05:12] LABS: BUN/Creatinine Ratio 11 (6-26); Blood Urea Nitrogen 6 mg/dL (6-20); Carbon Dioxide 27 mEq/L (23-29); Chloride 101 mEq/L (98-107); Glucose 125 mg/dL (70-105); Osmolality,Calculated 279 (280-300); Potassium 3.5 mEq/L (3.5-5.1); Sodium 135 mEq/L (136-145); eGFR For African Americans > 60 (> 60); eGFR For Non-African Americans > 60 (> 60)
[2019-11-09] MEDS: *HR* Enoxaparin 40 MG/0.4 ML SYRINGE SQ SCH (06:05)
[2019-11-09 06:35] VITALS: BP 165/110
[2019-11-09] MEDS: atenoloL 50 MG TABLET PO SCH (08:34)
[2019-11-09] MEDS: metroNIDAZOLE 500 MG TABLET PO SCH (08:34)
[2019-11-09] MEDS: hydroCHLOROthiazide 25 MG TABLET PO SCH (08:34)
== END 2019-11-09 11:20 | disposition home or self-care (01) | DRG 331 ==
LOC: ENDPAV 07:55 → 3NENU 07:55 → SUATTDRO 11:44
PROVIDERS: ADMIT Internal Medicine; ATTEND Internal Medicine